=== PATIENT | male | born 1965 | race Caucasian/White ===

== ENCOUNTER 2023-01-24 15:12 | Emergency (ER) | payer MEDICAID ==
[~2023-01-24] VITALS: Ht 175.3 cm; Wt 200.0 kg
[~2023-01-24 15:12] MED LIST: ASPI81CH43 PO; CHOL20009 PO; DIA5T GT; DIAZ5TAB PO; INSLANTI SC; INSLISPI SC; MULTLIQ36 OR; PANT40TA2 PO; PRAS10TA18 PO
[2023-01-24 15:18] VITALS: BP 149/70
[2023-01-24 16:20] LABS: Basophils # (auto) 0.1 10 ^3/uL (0-0.2); Eosinophils # (auto) 0.2 10 ^3/uL (0-0.8); Eosinophils % (auto) 1.6 % (0.0-7.0); Hemoglobin 17.7 g/dL (13.5-17.5); Lymphocytes # (auto) 2.3 10 ^3/uL (0.4-5.4); Monocytes # (auto) 1.1 10 ^3/uL (0-1.3)
[2023-01-24 16:28] LABS: Basophils % (auto) 1.1 % (0.0-2.0); Hematocrit 50.9 % (41.0-53.0); Lymphocytes % (auto) 23.3 % (10.0-50.0); Mean Corpuscular Hemoglobin 30.7 pg (28.0-32.0); Mean Corpuscular Hgb Conc. 34.7 g/dL (32.0-36.0); Mean Corpuscular Volume 88.5 fL (80.0-100.0); Monocytes % (auto) 11.3 % (0.0-12.0); Neutrophils # (auto) 6.2 10 ^3/uL (1.6-8.6); Neutrophils % (auto) 62.7 % (37.0-80.0); Nucleated Red Blood Cells % 0.7 %; Red Blood Cells 5.76 10^6/uL (4.5-5.90); Red Cell Distribution Width 13.6 % (11.8-14.3); White Blood Cell 9.9 10^3/uL (4.4-10.8)
[2023-01-24 16:42] LABS: Albumin 4.1 g/dL (3.4-5.0); BUN/Creatinine Ratio 9.4 (10.0-20.0); Calcium 9.6 mg/dL (8.5-10.1)
[2023-01-24 16:45] LABS: Bilirubin, Total 0.9 mg/dL (0.2-1.0); Total Protein 7.5 g/dL (6.4-8.2)
[2023-01-24 17:00] LABS: INR 1.15 (0.9-1.15); Partial Thromboplastin Time 32.9 sec (24.6-33.4)
== END 2023-01-25 02:57 | disposition left against medical advice (07) ==
LOC: EDBD 15:12 → ER 15:12
DX: R45.851 Suicidal ideations (principal); R07.89 Other chest pain; I11.0 Hypertensive heart disease with heart failure; I50.9 Heart failure, unspecified; I48.91 Unspecified atrial fibrillation; E11.9 Type 2 diabetes mellitus without complications; I25.2 Old myocardial infarction; F32.9 Major depressive disorder, single episode, unspecified; Z95.0 Presence of cardiac pacemaker
CPT/HCPCS: 36415; 80053; 80320; 83880; 84484; 85025; 85610; 85730

== ENCOUNTER 2023-03-01 07:46 | Emergency (ER) | payer MEDICAID ==
[~2023-03-01] VITALS: Ht 175.3 cm; Wt 95.0 kg
[2023-03-01 07:52] VITALS: BP 119/87
[2023-03-01] MEDS ORDERED: ASPirin 81 mg TAB PO ONE (08:15)
[2023-03-01 08:28] LABS: Basophils # (auto) 0.1 10 ^3/uL (0-0.2); Basophils % (auto) 0.8 % (0.0-2.0); Eosinophils # (auto) 0.1 10 ^3/uL (0-0.8); Eosinophils % (auto) 0.7 % (0.0-7.0); Hematocrit 50.5 % (41.0-53.0); Hemoglobin 17.2 g/dL (13.5-17.5); Lymphocytes # (auto) 2.1 10 ^3/uL (0.4-5.4); Lymphocytes % (auto) 17.9 % (10.0-50.0); Mean Corpuscular Hemoglobin 30.6 pg (28.0-32.0); Mean Corpuscular Hgb Conc. 34.1 g/dL (32.0-36.0); Mean Corpuscular Volume 89.8 fL (80.0-100.0); Monocytes % (auto) 8.6 % (0.0-12.0); Neutrophils # (auto) 8.5 10 ^3/uL (1.6-8.6); Nucleated Red Blood Cells % 0.1 %; Red Blood Cells 5.63 10^6/uL (4.5-5.90); Red Cell Distribution Width 13.9 % (11.8-14.3); White Blood Cell 11.8 10^3/uL (4.4-10.8)
[2023-03-01] MEDS ORDERED: SODIUM CHLORIDE 0.9% 1,000 ML IV ONE (08:30)
[2023-03-01 09:08] LABS: Potassium 3.7 mmol/L (3.5-5.1)
[2023-03-01 09:16] LABS: Albumin 4.1 g/dL (3.4-5.0); BUN/Creatinine Ratio 16.4 (10.0-20.0); Calcium 9.9 mg/dL (8.5-10.1)
== END 2023-03-01 09:12 | disposition left against medical advice (07) ==
LOC: ER 07:46
DX: R07.89 Other chest pain; F15.10 Other stimulant abuse, uncomplicated; F12.10 Cannabis abuse, uncomplicated; I48.91 Unspecified atrial fibrillation; I11.0 Hypertensive heart disease with heart failure; I50.9 Heart failure, unspecified; E11.9 Type 2 diabetes mellitus without complications; I25.2 Old myocardial infarction; Z86.73 Personal history of transient ischemic attack (TIA), and cerebral infarction without residual deficits; Z95.0 Presence of cardiac pacemaker; Z88.8 Allergy status to other drugs, medicaments and biological substances; Z88.1 Allergy status to other antibiotic agents; Z88.2 Allergy status to sulfonamides
CPT/HCPCS: 36415; 71045; 80053; 84484; 85025; 93005

== ENCOUNTER 2023-07-20 06:52 | Emergency (ER) | payer MEDICAID ==
[~2023-07-20] VITALS: Ht 175.3 cm; Wt 97.3 kg
[~2023-07-20 06:52] MED LIST changes: +DIAZ-681 PO; -DIAZ5TAB PO; -PRAS10TA18 PO; +PRAS10TA19 PO
[2023-07-20 07:37] VITALS: BP 135/78; PULSE 76; RESP 17; TEMP 97.4; O2SAT 98
[2023-07-20] MEDS ORDERED: COLCHICINE 0.6 MG CAP PO ONE (07:45)
[2023-07-20] MEDS ORDERED: methylPREDNISolone SOD SUCC 40 MG/ML VL IM ONE (07:45)
[2023-07-20] MEDS ORDERED: COLC1CAP PO (08:24)
== END 2023-07-20 08:35 | disposition home or self-care (01) ==
LOC: ER 06:52
DX: M10.9 Gout, unspecified (principal); I11.0 Hypertensive heart disease with heart failure; I50.9 Heart failure, unspecified; E11.9 Type 2 diabetes mellitus without complications; I25.2 Old myocardial infarction; I48.91 Unspecified atrial fibrillation; F15.90 Other stimulant use, unspecified, uncomplicated; Z86.73 Personal history of transient ischemic attack (TIA), and cerebral infarction without residual deficits; Z98.890 Other specified postprocedural states; Z88.2 Allergy status to sulfonamides; Z88.8 Allergy status to other drugs, medicaments and biological substances; Z79.4 Long term (current) use of insulin; Z79.899 Other long term (current) drug therapy
CPT/HCPCS: 96372; 99283; J2920

== ENCOUNTER 2023-10-04 17:20 | Inpatient (IN) | payer MEDICAID ==
[~2023-10-04] VITALS: Ht 175.3 cm; Wt 90.7 kg
[~2023-10-04 17:20] MED LIST changes: +ALL100T PO; +ALPR1TAB2 PO; +APIX5TAB PO; +ATOR10TA52 PO; +COLC1CAP PO; +DIGO0.1262 PO; +MET50T PO; +METF-370 PO; +NOR10T PO; +SERT-206 PO
[2023-10-04] MEDS ORDERED: dilTIAZem 25 MG/5 ML VIAL IV ONE (18:00)
[2023-10-04 18:12] LABS: Basophils # (auto) 0.1 10 ^3/uL (0-0.2); Eosinophils # (auto) 0.2 10 ^3/uL (0-0.8); Monocytes # (auto) 1.3 10 ^3/uL (0-1.3); Neutrophils # (auto) 8.6 10 ^3/uL (1.6-8.6)
[2023-10-04 18:13] LABS: Basophils % (auto) 0.4 % (0.0-2.0); Eosinophils % (auto) 1.4 % (0.0-7.0); Hematocrit 54.2 % (41.0-53.0); Hemoglobin 18.2 g/dL (13.5-17.5); Lymphocytes # (auto) 2.6 10 ^3/uL (0.4-5.4); Lymphocytes % (auto) 20.8 % (10.0-50.0); Mean Corpuscular Hemoglobin 30.5 pg (28.0-32.0); Mean Corpuscular Hgb Conc. 33.6 g/dL (32.0-36.0); Mean Corpuscular Volume 90.9 fL (80.0-100.0); Monocytes % (auto) 10.4 % (0.0-12.0); Nucleated Red Blood Cells % 0.3 %; Red Blood Cells 5.96 10^6/uL (4.5-5.90); Red Cell Distribution Width 14.2 % (11.8-14.3); White Blood Cell 12.7 10^3/uL (4.4-10.8)
[2023-10-04 18:34] LABS: Alanine Aminotransferase 42 U/L (7-40); Albumin 4.9 g/dL (3.2-4.8); Alkaline Phosphatase 94 U/L (46-116); Anion Gap 13 (5-15); Aspartate Aminotransferase 22 U/L (13-40); BUN/Creatinine Ratio 15.1 (10.0-20.0); Bilirubin, Total 0.8 mg/dL (0.2-1.0); Blood Urea Nitrogen 19 mg/dL (9-23); Calcium 10.1 mg/dL (8.7-10.4); Carbon Dioxide 23 mmol/L (20-30); Chloride 103 mmol/L (98-107); Glucose 162 mg/dL (74-106); Potassium 3.9 mmol/L (3.5-5.1); Sodium 139 mmol/L (136-145); Total Protein 7.1 g/dL (5.7-8.2)
[2023-10-04 20:00] VITALS: PULSE 136; RESP 20; O2SAT 95
[2023-10-04] MEDS ORDERED: ATOR20TA50 PO (20:44)
[2023-10-04] MEDS ORDERED: FURO40TA4 PO (20:44)
[2023-10-04] MEDS ORDERED: POTA-264 PO (20:44)
[2023-10-04] MEDS ORDERED: EMPA1TAB PO (20:44)
[2023-10-04] MEDS ORDERED: DIGO0.12 PO (20:44)
[2023-10-04] MEDS ORDERED: ACETAMINOPHEN 325 MG TAB PO PRN (20:45)
[2023-10-04] MEDS ORDERED: HYDROcodone-ACET 5/325MG TAB PO PRN (20:45)
[2023-10-04] MEDS ORDERED: NITROGLYCERIN 0.4 MG SL TAB SL PRN (20:45)
[2023-10-04] MEDS ORDERED: DOCUSATE SOD 100 MG CAP PO PRN (20:45)
[2023-10-04] MEDS ORDERED: ONDANSETRON HCL 4 MG/2 ML VIAL IV PRN (20:45)
[2023-10-04] MEDS ORDERED: cefTRIAXone 1GM/50ML D5W 50 ML IV ONE (21:00)
[2023-10-04] MEDS: APIXABAN 5 MG TAB PO SCH (21:53)
[2023-10-04 22:06] LABS: INR 1.08 (0.9-1.15); Partial Thromboplastin Time 29.8 SEC (24.5-34.5); Prothrombin Time 11.3 sec (9.3-11.8)
[2023-10-04] MEDS: LORazepam 0.5 MG TAB PO PRN (22:35)
[2023-10-04] MEDS: MORPHINE SULFATE INJ 2 MG/ml SYRG IV PRN (23:08)
[2023-10-05 00:44] LABS: Urine WBC None Seen /hpf (0 - 3)
[2023-10-05 01:07] LABS: Urine Bacteria NONE SEEN /hpf (None Seen); Urine Blood Negative /uL (Negative); Urine Clarity Clear (Clear); Urine Color Colorless (Yellow); Urine Protein, UAD Negative (Negative); Urine Specific Gravity 1.022 (1.001-1.035); Urine Urobilinogen Normal (Negative)
[2023-10-05 01:33] LABS: Amphetamine Screen, Urine Pos (NEGATIVE); Barbiturate Scree,Urine Neg (NEGATIVE); Benzodiazephine Screen, Urine Neg (NEGATIVE); Cocaine Screen, Urine Neg (NEGATIVE); Opiate Scree,Urine Neg (NEGATIVE); Phencyclidine Screen, Urine Neg (NEGATIVE)
[2023-10-05 01:34] LABS: Cannabinoid Screen, Urine Pos (NEGATIVE)
[2023-10-05] MEDS ORDERED: dilTIAZem 25 MG/5 ML VIAL IV ONE (02:15)
[2023-10-05] MEDS: MORPHINE SULFATE INJ 2 MG/ml SYRG IV PRN ×2 (02:48→03:20)
[2023-10-05] MEDS ORDERED: LORazepam 2MG/ML-1ML VIAL IM ONE (04:25)
[2023-10-05 07:31] LABS: Basophils # (auto) 0.1 10 ^3/uL (0-0.2); Basophils % (auto) 0.6 % (0.0-2.0); Eosinophils # (auto) 0.2 10 ^3/uL (0-0.8); Eosinophils % (auto) 1.7 % (0.0-7.0); Hematocrit 49.7 % (41.0-53.0); Hemoglobin 16.8 g/dL (13.5-17.5); Lymphocytes % (auto) 19.3 % (10.0-50.0); Mean Corpuscular Hemoglobin 30.6 pg (28.0-32.0); Mean Corpuscular Hgb Conc. 33.8 g/dL (32.0-36.0); Mean Corpuscular Volume 90.5 fL (80.0-100.0); Neutrophils # (auto) 7.1 10 ^3/uL (1.6-8.6); Neutrophils % (auto) 68.4 % (37.0-80.0); Nucleated Red Blood Cells % 0.2 %; Red Blood Cells 5.49 10^6/uL (4.5-5.90); Red Cell Distribution Width 14.1 % (11.8-14.3); White Blood Cell 10.3 10^3/uL (4.4-10.8)
[2023-10-05 07:46] LABS: Alanine Aminotransferase 37 U/L (7-40); Albumin 4.4 g/dL (3.2-4.8); Alkaline Phosphatase 83 U/L (46-116); Anion Gap 9 (5-15); Aspartate Aminotransferase 29 U/L (13-40); BUN/Creatinine Ratio 18.8 (10.0-20.0); Blood Urea Nitrogen 18 mg/dL (9-23); Calcium 9.8 mg/dL (8.5-10.1); Carbon Dioxide 25 mmol/L (20-30); Chloride 105 mmol/L (98-107); Glucose 155 mg/dL (74-106); Sodium 139 mmol/L (136-145); Total Protein 6.4 g/dL (5.7-8.2)
[2023-10-05 08:40] VITALS: PULSE 103; RESP 16; O2SAT 96
[2023-10-05] MEDS: cefTRIAXone 1GM/50ML D5W 50 ML IV SCH (09:06)
[2023-10-05] MEDS ORDERED: ATORVASTATIN 20 MG TAB PO SCH (10:00)
[2023-10-05] MEDS ORDERED: METOPROLOL TARTRATE 50 MG TAB PO ONE (10:30)
[2023-10-05] MEDS: FUROSEMIDE 20 MG/2 ML VIAL IV SCH (10:34)
[2023-10-05] MEDS: APIXABAN 5 MG TAB PO SCH ×2 (10:35→22:00)
[2023-10-05] MEDS: DIGOXIN 0.125 MG TAB PO SCH (10:35)
[2023-10-05] MEDS: POTASSIUM CHL 10 Meq TABLET PO SCH (10:35)
[2023-10-05] MEDS: EMPAGLIFLOZIN 10 MG TAB PO SCH (10:36)
[2023-10-05] MEDS: PANTOPRAZOLE 40 MG TAB PO SCH (10:36)
[2023-10-05 20:01] VITALS: PULSE 89; RESP 17; O2SAT 99
[2023-10-05] MEDS: ATORVASTATIN 20 MG TAB PO SCH (22:00)
[2023-10-05] MEDS: METOPROLOL TARTRATE 50 MG TAB PO SCH (22:00)
[2023-10-05 23:16] VITALS: BP 113/66; PULSE 96; RESP 18; TEMP 97.3; O2SAT 96
[2023-10-06] VITALS (8 sets, daily range): BP systolic 108–133; BP diastolic 57–80; PULSE 51–80; RESP 16–17; TEMP 36.6; O2SAT 95–99
[2023-10-06 07:09] LABS: Basophils # (auto) 0 10 ^3/uL (0-0.2); Basophils % (auto) 0.4 % (0.0-2.0); Eosinophils # (auto) 0.2 10 ^3/uL (0-0.8); Eosinophils % (auto) 2.5 % (0.0-7.0); Hematocrit 52.5 % (41.0-53.0); Hemoglobin 17.4 g/dL (13.5-17.5); Lymphocytes % (auto) 23.5 % (10.0-50.0); Mean Corpuscular Hemoglobin 30.5 pg (28.0-32.0); Mean Corpuscular Hgb Conc. 33.1 g/dL (32.0-36.0); Mean Corpuscular Volume 92.1 fL (80.0-100.0); Monocytes # (auto) 0.7 10 ^3/uL (0-1.3); Monocytes % (auto) 8.7 % (0.0-12.0); Neutrophils # (auto) 5.5 10 ^3/uL (1.6-8.6); Neutrophils % (auto) 64.9 % (37.0-80.0); Nucleated Red Blood Cells % 0.1 %; Red Cell Distribution Width 14.5 % (11.8-14.3); White Blood Cell 8.5 10^3/uL (4.4-10.8)
[2023-10-06 07:36] LABS: Chloride 102 mmol/L (98-107); Potassium 4.1 mmol/L (3.5-5.1); Sodium 137 mmol/L (136-145)
[2023-10-06 07:37] LABS: Anion Gap 4 (5-15); Carbon Dioxide 31 mmol/L (20-30)
[2023-10-06 07:38] LABS: Calcium 9.2 mg/dL (8.7-10.4)
[2023-10-06 07:42] LABS: BUN/Creatinine Ratio 11.8 (10.0-20.0); Blood Urea Nitrogen 13 mg/dL (9-23); Glucose 158 mg/dL (74-106)
[2023-10-06 07:51] LABS: Cholesterol 122 mg/dL (< 200); HDL Cholesterol 43 mg/dL (40-59); LDL Cholesterol 63 mg/dL (< 100); Triglycerides 150 mg/dL (< 150)
[2023-10-06] MEDS: EMPAGLIFLOZIN 10 MG TAB PO SCH (10:34)
[2023-10-06] MEDS: PANTOPRAZOLE 40 MG TAB PO SCH (10:34)
[2023-10-06] MEDS: METOPROLOL TARTRATE 50 MG TAB PO SCH ×2 (10:35→21:08)
[2023-10-06] MEDS: POTASSIUM CHL 10 Meq TABLET PO SCH (10:35)
[2023-10-06] MEDS: DIGOXIN 0.125 MG TAB PO SCH (10:35)
[2023-10-06] MEDS: APIXABAN 5 MG TAB PO SCH ×2 (10:35→21:13)
[2023-10-06] MEDS: cefTRIAXone 1GM/50ML D5W 50 ML IV SCH (10:36)
[2023-10-06] MEDS: FUROSEMIDE 20 MG/2 ML VIAL IV SCH (10:36)
[2023-10-06] MEDS ORDERED: MET50T PO (13:27)
[2023-10-06] MEDS: ATORVASTATIN 20 MG TAB PO SCH (21:13)
[2023-10-07 05:00] VITALS: BP 98/51; PULSE 54; RESP 18; TEMP 98.2; O2SAT 93
[2023-10-07 07:48] VITALS: PULSE 108
[2023-10-07 09:00] VITALS: BP 111/55; PULSE 58; RESP 18; TEMP 98.2; O2SAT 95
[2023-10-07] MEDS: POTASSIUM CHL 10 Meq TABLET PO SCH (09:54)
[2023-10-07] MEDS: PANTOPRAZOLE 40 MG TAB PO SCH (09:54)
[2023-10-07] MEDS: EMPAGLIFLOZIN 10 MG TAB PO SCH (09:55)
[2023-10-07] MEDS: APIXABAN 5 MG TAB PO SCH ×2 (09:55→21:14)
[2023-10-07] MEDS: cefTRIAXone 1GM/50ML D5W 50 ML IV SCH (09:56)
[2023-10-07] MEDS: FUROSEMIDE 20 MG/2 ML VIAL IV SCH (09:56)
[2023-10-07] MEDS: LORazepam 0.5 MG TAB PO PRN (09:59)
[2023-10-07] MEDS: METOPROLOL TARTRATE 50 MG TAB PO SCH ×2 (10:00→21:14)
[2023-10-07] MEDS: DIGOXIN 0.125 MG TAB PO SCH (10:00)
[2023-10-07 16:59] VITALS: BP 121/85; PULSE 69; RESP 20; TEMP 98.1; O2SAT 98
[2023-10-07 20:00] VITALS: PULSE 54; RESP 18; O2SAT 97
[2023-10-07] MEDS: ATORVASTATIN 20 MG TAB PO SCH (21:14)
[2023-10-08 08:21] LABS: Basophils # (auto) 0 10 ^3/uL (0-0.2); Basophils % (auto) 0.4 % (0.0-2.0); Eosinophils # (auto) 0.2 10 ^3/uL (0-0.8); Eosinophils % (auto) 1.5 % (0.0-7.0); Hemoglobin 19.8 g/dL (13.5-17.5); Lymphocytes # (auto) 1.8 10 ^3/uL (0.4-5.4); Mean Corpuscular Hemoglobin 31.1 pg (28.0-32.0); Mean Corpuscular Hgb Conc. 34.1 g/dL (32.0-36.0); Monocytes % (auto) 9.5 % (0.0-12.0); Neutrophils # (auto) 7.4 10 ^3/uL (1.6-8.6); Neutrophils % (auto) 71.6 % (37.0-80.0); Nucleated Red Blood Cells % 0.7 %; Red Blood Cells 6.39 10^6/uL (4.5-5.90); White Blood Cell 10.4 10^3/uL (4.4-10.8)
[2023-10-08 08:22] LABS: Hematocrit 58.2 % (41.0-53.0)
[2023-10-08 08:31] LABS: Chloride 103 mmol/L (98-107); Potassium 4.3 mmol/L (3.5-5.1); Sodium 138 mmol/L (136-145)
[2023-10-08 08:32] LABS: Anion Gap 7 (5-15); Carbon Dioxide 28 mmol/L (20-30)
[2023-10-08 08:33] LABS: Calcium 9.9 mg/dL (8.7-10.4)
[2023-10-08 08:35] VITALS: BP 144/69; PULSE 60; RESP 18; TEMP 98.4; O2SAT 96
[2023-10-08 08:38] LABS: BUN/Creatinine Ratio 11.6 (10.0-20.0); Blood Urea Nitrogen 14 mg/dL (9-23); Glucose 147 mg/dL (74-106); Magnesium 2.3 mg/dL (1.6-2.6)
[2023-10-08] MEDS ORDERED: METOPROLOL TARTRATE 50 MG TAB PO SCH (10:00)
[2023-10-08] MEDS: EMPAGLIFLOZIN 10 MG TAB PO SCH (10:28)
[2023-10-08] MEDS: PANTOPRAZOLE 40 MG TAB PO SCH (10:28)
[2023-10-08] MEDS: APIXABAN 5 MG TAB PO SCH (10:28)
[2023-10-10 15:06] LABS: Vitamin D 25-Hydroxy 27 ng/mL (.); Vitamin D-2 25-Hydroxy <1.0 ng/mL (.); Vitamin D-3 25-Hydroxy 27 ng/mL (.)
== END 2023-10-08 11:45 | disposition left against medical advice (07) | DRG 201 ==
LOC: EDBD 17:20 → ER 17:20 → TELE 20:40 → TELE-WESTW 10-05 21:36 → WEST WING 10-07 12:56
PROVIDERS: ADMIT Internal Medicine; ATTEND Internal Medicine
DX: I48.19 Other persistent atrial fibrillation (principal); I50.23 Acute on chronic systolic (congestive) heart failure; D68.9 Coagulation defect, unspecified; F29 Unspecified psychosis not due to a substance or known physiological condition; D72.829 Elevated white blood cell count, unspecified; E11.9 Type 2 diabetes mellitus without complications; E66.9 Obesity, unspecified; E78.5 Hyperlipidemia, unspecified; I11.0 Hypertensive heart disease with heart failure; I25.10 Atherosclerotic heart disease of native coronary artery without angina pectoris; F19.10 Other psychoactive substance abuse, uncomplicated; F15.10 Other stimulant abuse, uncomplicated; Z53.29 Procedure and treatment not carried out because of patient's decision for other reasons; H54.7 Unspecified visual loss; R00.0 Tachycardia, unspecified; R07.89 Other chest pain; F12.90 Cannabis use, unspecified, uncomplicated; M10.9 Gout, unspecified; Z95.0 Presence of cardiac pacemaker; I25.2 Old myocardial infarction; Z81.4 Family history of other substance abuse and dependence; Z83.3 Family history of diabetes mellitus; Z86.73 Personal history of transient ischemic attack (TIA), and cerebral infarction without residual deficits; Z88.1 Allergy status to other antibiotic agents; Z88.5 Allergy status to narcotic agent; Z88.8 Allergy status to other drugs, medicaments and biological substances; Z71.51 Drug abuse counseling and surveillance of drug abuser; Z68.29 Body mass index [BMI] 29.0-29.9, adult
CPT/HCPCS: 36415; 71045; 80048; 80053; 80061; 80162; 80307; 81001; 82306; 82962; 83036; 83735; 83880; 84439; 84443; 84484; 84550; 85025; 85610; 85730; 93005; 93306; 99291; G0378